=== PATIENT | male | born 1940 | race Caucasian/White ===

== ENCOUNTER 2019-07-09 19:10 | Emergency (ER) | payer MEDICARE ==
--- NOTE | 2019-07-09 19:39 | RAD ---
Chest AP view INDICATION: Fall with chest pain COMPARISON: Prior exam dated April 18, 2016 FINDINGS: Lungs:The lungs are clear Cardiac silhouette:Stable mild cardiomegaly. 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 Stable dual-lead pacemaker. Pulmonary vasculature:Normal Pleural spaces:No pleural effusion or pneumothorax is demonstrated. Upper abdomen:No abnormality seen. Osseous structures: No acute osseous abnormality. Interval left total shoulder replacement. Additional findings:None. IMPRESSION: No acute cardiopulmonary abnormality.
[2019-07-09 19:49] LABS: #Lymphocytes 0.8 thou/uL (1.20-3.40); #Monocytes 0.9 thou/uL (0.11-0.59); #Neutrophils 11.8 thou/uL (1.40-6.50); %Basophils 0.2 % (0.0-1.0); %Eosinophils 0.2 % (0.0-10.0); %Lymphocytes 6.1 % (21.0-51.0); %Monocytes 6.7 % (0.0-10.0); %Neutrophils 86.9 % (42.0-75.0); Hemoglobin 13.6 g/dL (14.0-18.0); Mean Corpuscular HGB CONC 33.5 g/dL (32.0-36.0); Mean Corpuscular Hemoglobin 33.5 pg (27.0-31.0); Mean Platelet Volume 9.1 fL (7.4-10.4); Platelet Count 141 thou/uL (130-400); RBC Distribution Width 12.3 % (11.5-14.5); Red Blood Cell (RBC) Count 4.04 mill/uL (4.70-6.10); White Blood Cell (WBC) Count 13.6 thou/uL (4.8-10.8)
--- NOTE | 2019-07-09 19:51 | RAD ---
RIGHT HAND THREE VIEW: 07/09/19 HISTORY: Fall. COMPARISON: None. FINDINGS: No acute displaced fracture or malalignment. Mild vascular calcifications. Mild interphalangeal joint space narrowing. IMPRESSION: 1. No acute fracture or malalignment. 2. 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 This is a chronic benign pr ocess. POS: HOME
--- NOTE | 2019-07-09 19:52 | CT ---
CT Brain WO Con: 07/09/2019 7:23 PM CLINICAL HISTORY: Fall on blood thinners. IMAGING TECHNIQUE: Multiple CT images were obtained of the brain without IV contrast. COMPARISON: CT the brain dated December 30, 2015 FINDINGS: Brain: There is been interval development of an area of encephalomalacia involving the right inferio r and lateral aspect of the frontal lobe likely related to prior ischemic insult. There is mild chronic small vessel white matter ischemic change. No acute infarct, hemorrhage or hydrocephalus is p resent. Ventricles: Normal. No hydrocephalus.. Skull: Intact.. Visualized Paranasal sinuses: There is chronic sinusitis involving the right main sphenoid sinus that is stable to the prior exam.. Mastoid air cells:Clear. Extracranial soft tissues:Normal. IMPRESSION: No acute intracranial abnormality. 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 Mild chronic small vessel white matter ischemic change. Stable chronic sphenoid sinusitis.
--- NOTE | 2019-07-09 19:53 | RAD ---
LEFT HAND THREE VIEW 07/09/19 HISTORY: Fall. Pain. COMPARISON: None. FINDINGS: Elongation of the ulnar styloid. No fracture. No malalignment. Punctate radiopacity less than 1 mm in size along the lateral aspect of the index finger distal phala nx diaphysis. IMPRESSION: Punctate radiopacity as described. No acute fracture. POS: HOME
[2019-07-09 19:56] LABS: INR-International Normal Ratio 1.1; PTT 30.4 SEC (22.9-36.1)
[2019-07-09 20:12] LABS: ALT (SGPT) 12 U/L (8-55); AST (SGOT) 24 U/L (5-34); Albumin 4.3 g/dL (3.4-4.8); Alkaline Phosphatase 78 U/L (40-110); Anion Gap 14 mmol/L (10-20); BUN (Urea Nitrogen) 30 mg/dL (8.4-25.7); Bilirubin, Total 0.6 mg/dL (0.2-1.2); Calc. Creatinine Clearance 0 mL/min (70-130); Calcium 9.6 mg/dL (7.8-10.44); Carbon Dioxide 23 mmol/L (23-31); Chloride 106 mmol/L (98-107); Estimated GFR-MDRD 57; Globulin 3.6 g/dL (2.4-3.5); Glucose 112 mg/dL (83-110); Potassium 3.8 mmol/L (3.5-5.1); Protein, Total 7.9 g/dL (5.8-8.1); Sodium 139 mmol/L (136-145)
[2019-07-09] MEDS ORDERED: Adacel (T-DAP) 0.5 ML SYRINGE ONE (20:20)
== END 2019-07-09 21:44 | disposition home or self-care (01) ==
LOC: ERS 19:10
DX: S60.222A Contusion of left hand, initial encounter (principal); S60.221A Contusion of right hand, initial encounter; S80.811A Abrasion, right lower leg, initial encounter; G20 Parkinson's disease; I25.10 Atherosclerotic heart disease of native coronary artery without angina pectoris; Z23 Encounter for immunization; Z79.899 Other long term (current) drug therapy; Z79.02 Long term (current) use of antithrombotics/antiplatelets; W17.89XA Other fall from one level to another, initial encounter; Y93.01 Activity, walking, marching and hiking
CPT/HCPCS: 36415; 70450; 71045; 80053; 85025; 85610; 85730; 90471; 90715

== ENCOUNTER 2020-09-02 15:58 | Inpatient (IN) | payer MEDICARE ==
[~2020-09-02 15:58] MED LIST: Iopamidol-370 76% 500 ML 1 ML ONE
[2020-09-02 16:46] LABS: Hemoglobin 11.1 g/dL (14.0-18.0); Mean Corpuscular HGB CONC 33.5 g/dL (32.0-36.0); Mean Corpuscular Hemoglobin 33.8 pg (27.0-31.0); Mean Platelet Volume 10.2 fL (7.4-10.4); Platelet Count 72 thou/uL (130-400); RBC Distribution Width 12.2 % (11.5-14.5)
[2020-09-02 16:50] LABS: Bacteria/HPF None Seen HPF (None Seen); Bilirubin Negative (Negative); Blood, Urine Trace (Negative); Clarity Clear (Clear); Glucose, Urine (Dipstick) Normal (Negative); Ketone, Urine Negative (Negative); Leukocyte Negative Leu/uL (Negative); Mucous/LPF Rare LPF (<2+); Nitrite Negative (Negative); Protein, Urine (Dipstick) 10 mg/dL (Neg-Trace); RBC/HPF 0-3 HPF (0-3); Specific Gravity, Urine 1.012 (1.002-1.036); Squamous Epithelial None Seen HPF (0-3); Urobilinogen Normal mg/dL (Less than 2); WBC/HPF 0-3 HPF (0-3); pH, Urine 5.5 (5.0-9.0)
[2020-09-02 17:02] LABS: ALT (SGPT) 11 U/L (8-55); AST (SGOT) 50 U/L (5-34); Albumin 3.2 g/dL (3.4-4.8); Alkaline Phosphatase 74 U/L (40-110); Anion Gap 14 mmol/L (10-20); BUN (Urea Nitrogen) 36 mg/dL (8.4-25.7); Bilirubin, Total 0.7 mg/dL (0.2-1.2); Calc. Creatinine Clearance 0 mL/min (70-130); Calcium 7.9 mg/dL (7.8-10.44); Carbon Dioxide 18 mmol/L (23-31); Chloride 104 mmol/L (98-107); Glucose 91 mg/dL (83-110); Potassium 3.4 mmol/L (3.5-5.1); Protein, Total 6.2 g/dL (5.8-8.1); Sodium 133 mmol/L (136-145)
[2020-09-02 17:05] LABS: Band 27 % (5-11); Lymphocytes 1 % (21-51); MDiff Complete? YES; Monocytes 6 % (0-10); Neutrophil 66 % (42-75); Ovalocytes SLIGHT = 2-5 cells (100X) (0-1/hpf); Platelet Morphology Comment Appears Decreased; Polychromasia SLIGHT = 2-3 cells (100X) (0-2/hpf)
[2020-09-02] MEDS ORDERED: Sodium Chloride 0.9% 0 ML ONE (17:19)
[2020-09-02] MEDS ORDERED: Cefepime 2 GM VIAL ONE (17:19)
[2020-09-02 17:21] LABS: SARS-CoV-2 NAA Rapid Test Not Detected (NotDetected)
[2020-09-02] MEDS ORDERED: Vancomycin 1.5 GRAM/300 ML BAG 1.5 GM in Premix Bag 1 BAG IVPB SCH (17:30)
[2020-09-02 19:31] LABS: Lactic Acid 0.9 mmol/L (0.5-2.2)
[2020-09-02] MEDS ORDERED: Ondansetron PF 4 MG/2 ML Vial IVP PRN (22:22)
[2020-09-02] MEDS ORDERED: Potassium Chloride 20 MEQ TAB PO SCH (22:30)
[2020-09-02 23:38] VITALS: BMI 21.3
[2020-09-02] MEDS: Sodium Chloride 0.9% 1,000 ML IV SCH (23:41)
[2020-09-03] MEDS: Piperacillin/Tazobactam 3.375 GM in Sodium Chloride 0.9% 100 ML IVPB SCH ×3 (05:05→20:40)
[2020-09-03 05:42] LABS: Hemoglobin 11.2 g/dL (14.0-18.0); Mean Corpuscular HGB CONC 34.1 g/dL (32.0-36.0); Mean Corpuscular Hemoglobin 34.5 pg (27.0-31.0); Mean Platelet Volume 10.5 fL (7.4-10.4); Platelet Count 72 thou/uL (130-400); RBC Distribution Width 12.5 % (11.5-14.5); Red Blood Cell (RBC) Count 3.23 mill/uL (4.70-6.10); White Blood Cell (WBC) Count 10.4 thou/uL (4.8-10.8)
[2020-09-03 05:59] LABS: Lymphocytes 8 % (21-51); MDiff Complete? YES; Monocytes 5 % (0-10); Neutrophil 87 % (42-75); Platelet Morphology Comment Appears Decreased
[2020-09-03 06:00] LABS: Anion Gap 12 mmol/L (10-20); BUN (Urea Nitrogen) 28 mg/dL (8.4-25.7); Calc. Creatinine Clearance 69 mL/min (70-130); Carbon Dioxide 21 mmol/L (23-31); Chloride 108 mmol/L (98-107); Glucose 84 mg/dL (83-110); Magnesium 2.2 mg/dL (1.6-2.6); Potassium 3.9 mmol/L (3.5-5.1); Sodium 137 mmol/L (136-145)
[2020-09-03 06:00] LABS: ALT (SGPT) 20 U/L (8-55); AST (SGOT) 45 U/L (5-34); Albumin 3.1 g/dL (3.4-4.8); Alkaline Phosphatase 69 U/L (40-110); Bilirubin, Direct 0.3 mg/dL (0.1-0.3); Bilirubin, Total 0.5 mg/dL (0.2-1.2); Protein, Total 5.9 g/dL (5.8-8.1)
[2020-09-03] MEDS: Vancomycin 1 GM in Premix Bag 1 BAG IVPB SCH ×2 (11:41→22:07)
[2020-09-03] MEDS: Sodium Chloride 0.9% 1,000 ML IV SCH (18:57)
[2020-09-04] MEDS: Piperacillin/Tazobactam 3.375 GM in Sodium Chloride 0.9% 100 ML IVPB SCH ×2 (05:39→13:42)
[2020-09-04 06:40] LABS: Hemoglobin 11.9 g/dL (14.0-18.0); Mean Corpuscular HGB CONC 33.8 g/dL (32.0-36.0); Mean Corpuscular Hemoglobin 34.1 pg (27.0-31.0); Mean Platelet Volume 9.9 fL (7.4-10.4); Platelet Count 90 thou/uL (130-400); RBC Distribution Width 12.2 % (11.5-14.5); Red Blood Cell (RBC) Count 3.48 mill/uL (4.70-6.10)
[2020-09-04 06:47] LABS: Band 3 % (5-11); Hypochromia SLIGHT = 6-15 cells (100X) (0-5/hpf); Lymphocytes 4 % (21-51); MDiff Complete? YES; Macrocytosis SLIGHT = 6-15 cells (100X) (0-5/hpf); Monocytes 13 % (0-10); Neutrophil 80 % (42-75); Platelet Morphology Comment Appears Adequate
[2020-09-04 06:53] LABS: Anion Gap 12 mmol/L (10-20); BUN (Urea Nitrogen) 18 mg/dL (8.4-25.7); Calc. Creatinine Clearance 77 mL/min (70-130); Calcium 8.1 mg/dL (7.8-10.44); Carbon Dioxide 20 mmol/L (23-31); Chloride 109 mmol/L (98-107); Glucose 94 mg/dL (83-110); Potassium 3.3 mmol/L (3.5-5.1); Sodium 138 mmol/L (136-145)
[2020-09-04] MEDS: Vancomycin 1 GM in Premix Bag 1 BAG IVPB SCH ×2 (11:40→22:39)
[2020-09-04] MEDS ORDERED: Potassium Chloride 20 MEQ TAB PO SCH (15:00)
[2020-09-04] MEDS: metroNIDAZOLE 500 MG in Premix Bag 1 BAG IVPB SCH ×2 (15:54→23:50)
[2020-09-04] MEDS: Sodium Chloride 0.9% 1,000 ML IV SCH (17:11)
[2020-09-04] MEDS: Atorvastatin Calcium 10 MG TAB PO SCH (21:41)
[2020-09-04 22:34] LABS: Vancomycin, Trough 13.4 ug/mL
[2020-09-05 06:49] LABS: #Eosinphils 0.1 thou/uL (0.0-0.7); #Lymphocytes 1.4 thou/uL (1.20-3.40); #Monocytes 1.2 thou/uL (0.11-0.59); #Neutrophils 8.4 thou/uL (1.40-6.50); %Basophils 0.3 % (0.0-1.0); %Eosinophils 0.5 % (0.0-10.0); %Lymphocytes 12.4 % (21.0-51.0); %Monocytes 11.1 % (0.0-10.0); %Neutrophils 75.7 % (42.0-75.0); Hemoglobin 12.1 g/dL (14.0-18.0); Mean Corpuscular HGB CONC 34.9 g/dL (32.0-36.0); Mean Corpuscular Hemoglobin 35.3 pg (27.0-31.0); Mean Platelet Volume 9.9 fL (7.4-10.4); Platelet Count 111 thou/uL (130-400); RBC Distribution Width 12.2 % (11.5-14.5); Red Blood Cell (RBC) Count 3.42 mill/uL (4.70-6.10); White Blood Cell (WBC) Count 11.1 thou/uL (4.8-10.8)
[2020-09-05 07:13] LABS: Anion Gap 11 mmol/L (10-20); BUN (Urea Nitrogen) 13 mg/dL (8.4-25.7); Calc. Creatinine Clearance 81 mL/min (70-130); Calcium 8.2 mg/dL (7.8-10.44); Carbon Dioxide 22 mmol/L (23-31); Chloride 110 mmol/L (98-107); Glucose 102 mg/dL (83-110); Magnesium 2.1 mg/dL (1.6-2.6); Potassium 3.2 mmol/L (3.5-5.1); Sodium 140 mmol/L (136-145)
[2020-09-05] MEDS: metroNIDAZOLE 500 MG in Premix Bag 1 BAG IVPB SCH ×2 (09:04→17:30)
[2020-09-05] MEDS: Zonisamide 100 MG CAP PO SCH (09:05)
[2020-09-05] MEDS: Aspirin 81 mg Enteric Coated Tablet PO SCH (09:05)
[2020-09-05] MEDS: Sodium Chloride 0.9% 1,000 ML IV SCH (10:32)
[2020-09-05] MEDS: Carbidopa/Levodopa 25-250 mg Tablet PO SCH ×3 (10:33→20:31)
[2020-09-05] MEDS: Vancomycin 1 GM in Premix Bag 1 BAG IVPB SCH ×2 (10:33→22:09)
[2020-09-05] MEDS ORDERED: Potassium Chloride 20 MEQ TAB PO SCH (13:15)
[2020-09-05] MEDS ORDERED: Cholestyramine/Aspartame 4 gm Packet PO SCH (13:15)
[2020-09-05] MEDS: Atorvastatin Calcium 10 MG TAB PO SCH (20:31)
[2020-09-05] MEDS: Cholestyramine/Aspartame 4 gm Packet PO SCH (22:09)
[2020-09-06] MEDS: metroNIDAZOLE 500 MG in Premix Bag 1 BAG IVPB SCH ×3 (00:09→16:45)
[2020-09-06] MEDS: Sodium Chloride 0.9% 1,000 ML IV SCH (05:46)
[2020-09-06] MEDS: Aspirin 81 mg Enteric Coated Tablet PO SCH (08:43)
[2020-09-06] MEDS: Carbidopa/Levodopa 25-250 mg Tablet PO SCH ×3 (08:43→20:43)
[2020-09-06] MEDS: Zonisamide 100 MG CAP PO SCH (08:43)
[2020-09-06] MEDS: traMADol HCl 50 MG TAB PO PRN (08:50)
[2020-09-06] MEDS: Vancomycin 1 GM in Premix Bag 1 BAG IVPB SCH (09:52)
[2020-09-06] MEDS: Cholestyramine/Aspartame 4 gm Packet PO SCH ×2 (11:39→21:59)
[2020-09-06] MEDS: Atorvastatin Calcium 10 MG TAB PO SCH (20:43)
[2020-09-06] MEDS: VANCOMYCIN 1.25 GM/250 ML BAG 1.25 GM in Premix Bag 1 BAG IVPB SCH (21:59)
[2020-09-07] MEDS: metroNIDAZOLE 500 MG in Premix Bag 1 BAG IVPB SCH ×3 (00:03→16:20)
[2020-09-07] MEDS: traMADol HCl 50 MG TAB PO PRN (01:33)
[2020-09-07] MEDS: Sodium Chloride 0.9% 1,000 ML IV SCH ×3 (03:13→21:36)
[2020-09-07 05:23] LABS: #Basophils 0.1 thou/uL (0.0-0.2); #Eosinphils 0.3 thou/uL (0.0-0.7); #Lymphocytes 1.6 thou/uL (1.20-3.40); #Monocytes 0.9 thou/uL (0.11-0.59); #Neutrophils 6.6 thou/uL (1.40-6.50); %Basophils 0.7 % (0.0-1.0); %Eosinophils 2.7 % (0.0-10.0); %Monocytes 9.6 % (0.0-10.0); %Neutrophils 69.9 % (42.0-75.0); Hemoglobin 11.6 g/dL (14.0-18.0); Mean Corpuscular HGB CONC 32.6 g/dL (32.0-36.0); Mean Platelet Volume 8.9 fL (7.4-10.4); Platelet Count 166 thou/uL (130-400); RBC Distribution Width 12.4 % (11.5-14.5); Red Blood Cell (RBC) Count 3.51 mill/uL (4.70-6.10); White Blood Cell (WBC) Count 9.4 thou/uL (4.8-10.8)
[2020-09-07 05:47] LABS: Anion Gap 10 mmol/L (10-20); BUN (Urea Nitrogen) 14 mg/dL (8.4-25.7); Calc. Creatinine Clearance 78 mL/min (70-130); Calcium 8.2 mg/dL (7.8-10.44); Carbon Dioxide 23 mmol/L (23-31); Chloride 109 mmol/L (98-107); Glucose 87 mg/dL (83-110); Potassium 3.6 mmol/L (3.5-5.1); Sodium 138 mmol/L (136-145)
[2020-09-07] MEDS: Aspirin 81 mg Enteric Coated Tablet PO SCH (08:11)
[2020-09-07] MEDS: Zonisamide 100 MG CAP PO SCH (08:11)
[2020-09-07] MEDS: Carbidopa/Levodopa 25-250 mg Tablet PO SCH ×3 (08:12→20:22)
[2020-09-07] MEDS: VANCOMYCIN 1.25 GM/250 ML BAG 1.25 GM in Premix Bag 1 BAG IVPB SCH ×2 (09:34→21:31)
[2020-09-07] MEDS: Cholestyramine/Aspartame 4 gm Packet PO SCH ×2 (09:35→21:30)
[2020-09-07] MEDS: Acetaminophen 325 MG TAB PO PRN (11:27)
[2020-09-07] MEDS: Atorvastatin Calcium 10 MG TAB PO SCH (20:22)
[2020-09-08] MEDS: metroNIDAZOLE 500 MG in Premix Bag 1 BAG IVPB SCH ×3 (00:50→15:31)
[2020-09-08 06:06] LABS: #Basophils 0.1 thou/uL (0.0-0.2); #Eosinphils 0.3 thou/uL (0.0-0.7); #Lymphocytes 1.7 thou/uL (1.20-3.40); #Neutrophils 8.6 thou/uL (1.40-6.50); %Basophils 0.8 % (0.0-1.0); %Eosinophils 2.4 % (0.0-10.0); %Lymphocytes 14.4 % (21.0-51.0); %Monocytes 8.8 % (0.0-10.0); %Neutrophils 73.5 % (42.0-75.0); Mean Corpuscular HGB CONC 33.3 g/dL (32.0-36.0); Mean Corpuscular Hemoglobin 33.7 pg (27.0-31.0); Mean Platelet Volume 8.6 fL (7.4-10.4); Platelet Count 195 thou/uL (130-400); RBC Distribution Width 12.5 % (11.5-14.5); Red Blood Cell (RBC) Count 3.56 mill/uL (4.70-6.10); White Blood Cell (WBC) Count 11.7 thou/uL (4.8-10.8)
[2020-09-08 06:17] LABS: Anion Gap 13 mmol/L (10-20); BUN (Urea Nitrogen) 15 mg/dL (8.4-25.7); Calc. Creatinine Clearance 79 mL/min (70-130); Calcium 8.5 mg/dL (7.8-10.44); Carbon Dioxide 19 mmol/L (23-31); Chloride 110 mmol/L (98-107); Glucose 98 mg/dL (83-110); Potassium 4.1 mmol/L (3.5-5.1); Sodium 138 mmol/L (136-145)
[2020-09-08] MEDS: Aspirin 81 mg Enteric Coated Tablet PO SCH (08:28)
[2020-09-08] MEDS: Carbidopa/Levodopa 25-250 mg Tablet PO SCH ×3 (08:28→20:57)
[2020-09-08] MEDS: Zonisamide 100 MG CAP PO SCH (08:28)
[2020-09-08] MEDS: Cholestyramine/Aspartame 4 gm Packet PO SCH ×2 (08:29→22:42)
[2020-09-08] MEDS: VANCOMYCIN 1.25 GM/250 ML BAG 1.25 GM in Premix Bag 1 BAG IVPB SCH ×3 (08:29→22:41)
[2020-09-08 09:12] LABS: Vancomycin, Trough 20.2 ug/mL
[2020-09-08] MEDS: Sodium Chloride 0.9% 1,000 ML IV SCH (20:57)
[2020-09-08] MEDS: Atorvastatin Calcium 10 MG TAB PO SCH (20:57)
[2020-09-09] MEDS: metroNIDAZOLE 500 MG in Premix Bag 1 BAG IVPB SCH ×3 (00:55→16:57)
[2020-09-09 06:33] LABS: #Basophils 0.1 thou/uL (0.0-0.2); #Eosinphils 0.1 thou/uL (0.0-0.7); #Lymphocytes 1.6 thou/uL (1.20-3.40); #Neutrophils 8.5 thou/uL (1.40-6.50); %Basophils 1.1 % (0.0-1.0); %Eosinophils 1.2 % (0.0-10.0); %Lymphocytes 14.2 % (21.0-51.0); %Neutrophils 74.5 % (42.0-75.0); Hemoglobin 11.8 g/dL (14.0-18.0); Mean Corpuscular HGB CONC 33.4 g/dL (32.0-36.0); Mean Platelet Volume 8.6 fL (7.4-10.4); Platelet Count 226 thou/uL (130-400); RBC Distribution Width 12.4 % (11.5-14.5); Red Blood Cell (RBC) Count 3.46 mill/uL (4.70-6.10); White Blood Cell (WBC) Count 11.4 thou/uL (4.8-10.8)
[2020-09-09 06:52] LABS: Anion Gap 11 mmol/L (10-20); BUN (Urea Nitrogen) 15 mg/dL (8.4-25.7); Calc. Creatinine Clearance 76 mL/min (70-130); Carbon Dioxide 21 mmol/L (23-31); Chloride 108 mmol/L (98-107); Glucose 100 mg/dL (83-110); Potassium 3.4 mmol/L (3.5-5.1); Sodium 137 mmol/L (136-145)
[2020-09-09] MEDS: Carbidopa/Levodopa 25-250 mg Tablet PO SCH ×3 (08:45→20:10)
[2020-09-09] MEDS: Aspirin 81 mg Enteric Coated Tablet PO SCH (08:45)
[2020-09-09] MEDS: Zonisamide 100 MG CAP PO SCH (08:45)
[2020-09-09] MEDS: VANCOMYCIN 1.25 GM/250 ML BAG 1.25 GM in Premix Bag 1 BAG IVPB SCH ×2 (11:46→20:10)
[2020-09-09] MEDS: Cholestyramine/Aspartame 4 gm Packet PO SCH ×2 (11:46→22:20)
[2020-09-09] MEDS: Sodium Chloride 0.9% 1,000 ML IV SCH (15:59)
[2020-09-09] MEDS: Atorvastatin Calcium 10 MG TAB PO SCH (20:10)
[2020-09-09] MEDS: traMADol HCl 50 MG TAB PO PRN (22:18)
[2020-09-10] MEDS: metroNIDAZOLE 500 MG in Premix Bag 1 BAG IVPB SCH ×4 (00:22→23:21)
[2020-09-10 07:05] LABS: Anion Gap 11 mmol/L (10-20); BUN (Urea Nitrogen) 16 mg/dL (8.4-25.7); Calc. Creatinine Clearance 80 mL/min (70-130); Calcium 8.1 mg/dL (7.8-10.44); Carbon Dioxide 21 mmol/L (23-31); Chloride 110 mmol/L (98-107); Glucose 107 mg/dL (83-110); Potassium 3.5 mmol/L (3.5-5.1); Sodium 138 mmol/L (136-145)
[2020-09-10 07:46] LABS: #Basophils 0.1 thou/uL (0.0-0.2); #Eosinphils 0.2 thou/uL (0.0-0.7); #Lymphocytes 1.5 thou/uL (1.20-3.40); #Monocytes 0.9 thou/uL (0.11-0.59); #Neutrophils 8.3 thou/uL (1.40-6.50); %Eosinophils 1.7 % (0.0-10.0); %Lymphocytes 13.5 % (21.0-51.0); %Monocytes 8.3 % (0.0-10.0); %Neutrophils 75.6 % (42.0-75.0); Hemoglobin 11.7 g/dL (14.0-18.0); Mean Corpuscular HGB CONC 33.6 g/dL (32.0-36.0); Mean Corpuscular Hemoglobin 33.9 pg (27.0-31.0); Mean Platelet Volume 8.9 fL (7.4-10.4); Platelet Count 222 thou/uL (130-400); RBC Distribution Width 12.4 % (11.5-14.5); Red Blood Cell (RBC) Count 3.45 mill/uL (4.70-6.10)
[2020-09-10] MEDS: Aspirin 81 mg Enteric Coated Tablet PO SCH (08:39)
[2020-09-10] MEDS: Carbidopa/Levodopa 25-250 mg Tablet PO SCH ×3 (08:39→20:21)
[2020-09-10] MEDS: Cholestyramine/Aspartame 4 gm Packet PO SCH ×2 (08:39→22:26)
[2020-09-10] MEDS: Zonisamide 100 MG CAP PO SCH (08:39)
[2020-09-10] MEDS: Sodium Chloride 0.9% 1,000 ML IV SCH (08:40)
[2020-09-10 10:33] LABS: Vancomycin, Trough 15.7 ug/mL
[2020-09-10] MEDS: VANCOMYCIN 1.25 GM/250 ML BAG 1.25 GM in Premix Bag 1 BAG IVPB SCH ×2 (11:48→23:21)
[2020-09-10] MEDS: Atorvastatin Calcium 10 MG TAB PO SCH (20:21)
[2020-09-10] MEDS: traMADol HCl 50 MG TAB PO PRN (20:29)
[2020-09-11] MEDS: Sodium Chloride 0.9% 1,000 ML IV SCH (05:11)
[2020-09-11 06:12] LABS: #Basophils 0.1 thou/uL (0.0-0.2); #Eosinphils 0.1 thou/uL (0.0-0.7); #Lymphocytes 1.7 thou/uL (1.20-3.40); #Monocytes 0.8 thou/uL (0.11-0.59); #Neutrophils 8.9 thou/uL (1.40-6.50); %Basophils 0.5 % (0.0-1.0); %Lymphocytes 14.4 % (21.0-51.0); %Monocytes 6.5 % (0.0-10.0); %Neutrophils 77.6 % (42.0-75.0); Hemoglobin 11.9 g/dL (14.0-18.0); Mean Corpuscular Hemoglobin 33.7 pg (27.0-31.0); Mean Platelet Volume 8.8 fL (7.4-10.4); Platelet Count 231 thou/uL (130-400); RBC Distribution Width 12.5 % (11.5-14.5); Red Blood Cell (RBC) Count 3.53 mill/uL (4.70-6.10); White Blood Cell (WBC) Count 11.5 thou/uL (4.8-10.8)
[2020-09-11 06:26] LABS: Anion Gap 12 mmol/L (10-20); BUN (Urea Nitrogen) 16 mg/dL (8.4-25.7); Calc. Creatinine Clearance 79 mL/min (70-130); Calcium 8.2 mg/dL (7.8-10.44); Carbon Dioxide 23 mmol/L (23-31); Chloride 108 mmol/L (98-107); Glucose 99 mg/dL (83-110); Potassium 3.7 mmol/L (3.5-5.1); Sodium 139 mmol/L (136-145)
[2020-09-11] MEDS: metroNIDAZOLE 500 MG in Premix Bag 1 BAG IVPB SCH ×3 (08:26→23:55)
[2020-09-11] MEDS: Aspirin 81 mg Enteric Coated Tablet PO SCH (08:26)
[2020-09-11] MEDS: Acetaminophen 325 MG TAB PO PRN (08:26)
[2020-09-11] MEDS: Zonisamide 100 MG CAP PO SCH (08:26)
[2020-09-11] MEDS: Cholestyramine/Aspartame 4 gm Packet PO SCH ×2 (08:27→19:51)
[2020-09-11] MEDS: Carbidopa/Levodopa 25-250 mg Tablet PO SCH ×3 (08:27→19:50)
[2020-09-11] MEDS: VANCOMYCIN 1.25 GM/250 ML BAG 1.25 GM in Premix Bag 1 BAG IVPB SCH ×2 (10:43→23:55)
[2020-09-11] MEDS ORDERED: Morphine 2 MG/ML VIAL SLOW IVP SCH (12:00)
[2020-09-11 12:25] LABS: Bacteria/HPF None Seen HPF (None Seen); Bilirubin Negative (Negative); Blood, Urine Negative (Negative); Clarity Clear (Clear); Glucose, Urine (Dipstick) Normal (Negative); Ketone, Urine Negative (Negative); Leukocyte Negative Leu/uL (Negative); Nitrite Negative (Negative); Protein, Urine (Dipstick) Negative (Neg-Trace); Specific Gravity, Urine 1.008 (1.002-1.036); Squamous Epithelial None Seen HPF (0-3); Urobilinogen Normal mg/dL (Less than 2); WBC/HPF 0-3 HPF (0-3)
[2020-09-11 12:27] LABS: Urine Culture Reflex No No
[2020-09-11] MEDS: Phenazopyridine HCl 100 MG TAB PO SCH ×2 (13:34→16:30)
[2020-09-11] MEDS: Atorvastatin Calcium 10 MG TAB PO SCH (19:50)
[2020-09-11] MEDS: traMADol HCl 50 MG TAB PO PRN (21:32)
[2020-09-12] MEDS: Sodium Chloride 0.9% 1,000 ML IV SCH ×2 (02:40→21:20)
[2020-09-12] MEDS: Aspirin 81 mg Enteric Coated Tablet PO SCH (08:33)
[2020-09-12] MEDS: Carbidopa/Levodopa 25-250 mg Tablet PO SCH ×3 (08:33→20:50)
[2020-09-12] MEDS: metroNIDAZOLE 500 MG in Premix Bag 1 BAG IVPB SCH ×3 (08:33→23:02)
[2020-09-12] MEDS: Phenazopyridine HCl 100 MG TAB PO SCH ×3 (08:34→17:14)
[2020-09-12] MEDS: Zonisamide 100 MG CAP PO SCH (08:40)
[2020-09-12] MEDS: Cholestyramine/Aspartame 4 gm Packet PO SCH ×2 (10:24→20:07)
[2020-09-12] MEDS: Tamsulosin HCl 0.4 MG CAP PO SCH ×3 (10:24→20:50)
[2020-09-12 12:42] LABS: Vancomycin, Trough 18.2 ug/mL
[2020-09-12] MEDS: VANCOMYCIN 1.25 GM/250 ML BAG 1.25 GM in Premix Bag 1 BAG IVPB SCH ×2 (14:15→14:31)
[2020-09-12] MEDS: traMADol HCl 50 MG TAB PO PRN (17:17)
[2020-09-12] MEDS: Atorvastatin Calcium 10 MG TAB PO SCH (20:50)
[2020-09-13] MEDS: VANCOMYCIN 1.25 GM/250 ML BAG 1.25 GM in Premix Bag 1 BAG IVPB SCH ×2 (01:37→14:09)
[2020-09-13] MEDS: Ciprofloxacin 500 MG TAB PO SCH ×2 (05:43→19:57)
[2020-09-13 06:58] LABS: #Basophils 0.1 thou/uL (0.0-0.2); #Eosinphils 0.1 thou/uL (0.0-0.7); #Lymphocytes 1.6 thou/uL (1.20-3.40); #Monocytes 0.7 thou/uL (0.11-0.59); #Neutrophils 7.6 thou/uL (1.40-6.50); %Basophils 0.7 % (0.0-1.0); %Eosinophils 1.3 % (0.0-10.0); %Monocytes 6.6 % (0.0-10.0); %Neutrophils 75.4 % (42.0-75.0); Hemoglobin 11.3 g/dL (14.0-18.0); Mean Corpuscular HGB CONC 32.7 g/dL (32.0-36.0); Mean Corpuscular Hemoglobin 33.3 pg (27.0-31.0); Mean Platelet Volume 8.4 fL (7.4-10.4); Platelet Count 200 thou/uL (130-400); RBC Distribution Width 12.5 % (11.5-14.5); Red Blood Cell (RBC) Count 3.38 mill/uL (4.70-6.10); White Blood Cell (WBC) Count 10.1 thou/uL (4.8-10.8)
[2020-09-13 07:20] LABS: Anion Gap 10 mmol/L (10-20); BUN (Urea Nitrogen) 14 mg/dL (8.4-25.7); Calc. Creatinine Clearance 79 mL/min (70-130); Calcium 8.1 mg/dL (7.8-10.44); Carbon Dioxide 21 mmol/L (23-31); Chloride 111 mmol/L (98-107); Glucose 98 mg/dL (83-110); Potassium 3.6 mmol/L (3.5-5.1); Sodium 138 mmol/L (136-145)
[2020-09-13] MEDS: Phenazopyridine HCl 100 MG TAB PO SCH ×3 (08:46→19:32)
[2020-09-13] MEDS: Aspirin 81 mg Enteric Coated Tablet PO SCH (08:46)
[2020-09-13] MEDS: metroNIDAZOLE 500 MG in Premix Bag 1 BAG IVPB SCH (08:47)
[2020-09-13] MEDS: Finasteride 5 MG TAB PO SCH (08:47)
[2020-09-13] MEDS: Carbidopa/Levodopa 25-250 mg Tablet PO SCH ×3 (08:47→19:58)
[2020-09-13] MEDS: Zonisamide 100 MG CAP PO SCH (08:50)
[2020-09-13] MEDS: Cholestyramine/Aspartame 4 gm Packet PO SCH ×2 (11:32→22:03)
[2020-09-13] MEDS ORDERED: Bisacodyl 10 MG SUPP PR PRN (14:45)
[2020-09-13] MEDS ORDERED: Polyethylene Glycol 3350 17 GM Packet PO PRN (14:45)
[2020-09-13] MEDS: Sodium Chloride 0.9% 1,000 ML IV SCH (19:32)
[2020-09-13] MEDS: Tamsulosin HCl 0.4 MG CAP PO SCH (19:57)
[2020-09-13] MEDS: Atorvastatin Calcium 10 MG TAB PO SCH (19:57)
[2020-09-13] MEDS ORDERED: Labetalol HCl 100 MG/20 ML VIAL ONE (22:52)
[2020-09-14] MEDS: VANCOMYCIN 1.25 GM/250 ML BAG 1.25 GM in Premix Bag 1 BAG IVPB SCH ×2 (02:02→13:26)
[2020-09-14] MEDS: Ciprofloxacin 500 MG TAB PO SCH ×2 (05:54→21:18)
[2020-09-14] MEDS: Finasteride 5 MG TAB PO SCH (09:50)
[2020-09-14] MEDS: Phenazopyridine HCl 100 MG TAB PO SCH ×3 (09:50→17:24)
[2020-09-14] MEDS: Carbidopa/Levodopa 25-250 mg Tablet PO SCH ×3 (09:50→21:18)
[2020-09-14] MEDS: Zonisamide 100 MG CAP PO SCH (09:50)
[2020-09-14] MEDS: Aspirin 81 mg Enteric Coated Tablet PO SCH (09:50)
[2020-09-14] MEDS: Cholestyramine/Aspartame 4 gm Packet PO SCH ×2 (09:51→21:19)
[2020-09-14] MEDS: Acetaminophen 325 MG TAB PO PRN (09:54)
[2020-09-14] MEDS: Sodium Chloride 0.9% 1,000 ML IV SCH (13:26)
[2020-09-14] MEDS: traMADol HCl 50 MG TAB PO PRN (17:58)
[2020-09-14] MEDS: Tamsulosin HCl 0.4 MG CAP PO SCH (21:18)
[2020-09-14] MEDS: Atorvastatin Calcium 10 MG TAB PO SCH (21:18)
[2020-09-15] MEDS: VANCOMYCIN 1.25 GM/250 ML BAG 1.25 GM in Premix Bag 1 BAG IVPB SCH ×2 (02:52→12:44)
[2020-09-15] MEDS: Ciprofloxacin 500 MG TAB PO SCH ×2 (06:05→20:32)
[2020-09-15 07:45] LABS: Anion Gap 9 mmol/L (10-20); BUN (Urea Nitrogen) 12 mg/dL (8.4-25.7); Calc. Creatinine Clearance 79 mL/min (70-130); Calcium 8.4 mg/dL (7.8-10.44); Carbon Dioxide 26 mmol/L (23-31); Chloride 109 mmol/L (98-107); Glucose 95 mg/dL (83-110); Sodium 140 mmol/L (136-145)
[2020-09-15] MEDS: Zonisamide 100 MG CAP PO SCH (09:18)
[2020-09-15] MEDS: Phenazopyridine HCl 100 MG TAB PO SCH ×3 (09:18→18:26)
[2020-09-15] MEDS: Carbidopa/Levodopa 25-250 mg Tablet PO SCH ×3 (09:18→20:32)
[2020-09-15] MEDS: Cholestyramine/Aspartame 4 gm Packet PO SCH (09:18)
[2020-09-15] MEDS: Aspirin 81 mg Enteric Coated Tablet PO SCH (09:19)
[2020-09-15] MEDS: traMADol HCl 50 MG TAB PO PRN (09:19)
[2020-09-15] MEDS: Finasteride 5 MG TAB PO SCH (09:20)
[2020-09-15] MEDS: Sodium Chloride 0.9% 1,000 ML IV SCH (09:20)
[2020-09-15] MEDS: Acetaminophen 325 MG TAB PO PRN ×2 (15:30→18:26)
[2020-09-15] MEDS: Tamsulosin HCl 0.4 MG CAP PO SCH (20:32)
[2020-09-15] MEDS: Atorvastatin Calcium 10 MG TAB PO SCH (20:32)
[2020-09-15 23:22] VITALS: BP 140/72; TEMP 98.2
== END 2020-09-15 23:15 | DRG 872 ==
LOC: ERS 15:58 → T4-A 20:42 → OBSVTOIN 09-04 09:28
PROVIDERS: ADMIT Internal Medicine; ATTEND Internal Medicine
PROC: 0T9B70Z Drainage of Bladder with Drainage Device, Via Natural or Artificial Opening (ICD-10-PCS; principal; 2020-09-13)
DX: A41.81 Sepsis due to Enterococcus (principal); E87.2 Acidosis; A09 Infectious gastroenteritis and colitis, unspecified; K52.1 Toxic gastroenteritis and colitis; Z20.822 Contact with and (suspected) exposure to COVID-19; G20 Parkinson's disease; K76.9 Liver disease, unspecified; I25.10 Atherosclerotic heart disease of native coronary artery without angina pectoris; N40.0 Benign prostatic hyperplasia without lower urinary tract symptoms; N20.0 Calculus of kidney; N21.0 Calculus in bladder; K59.09 Other constipation; N41.9 Inflammatory disease of prostate, unspecified; Z79.899 Other long term (current) drug therapy; Z95.1 Presence of aortocoronary bypass graft; Z95.0 Presence of cardiac pacemaker; T36.95XA Adverse effect of unspecified systemic antibiotic, initial encounter; K62.89 Other specified diseases of anus and rectum
CPT/HCPCS: 0240U; 36415; 51701; 70450; 71045; 71260; 74177; 80048; 80053; 80076; 80202; 81001; 81003; 81015; 83605; 83735; 84145; 84443; 84484; 85025; 87040; 87045; 87046; 87077; 87086; 87149; 87186; 87324; 87427; 87449; 93005; 93306; 96365; 96367; 96376; G0378; J0692; J0744; J2270; J2543; J3370; J3490; Q9967

== ENCOUNTER 2020-11-15 22:39 | Emergency (ER) | payer MEDICARE ==
[2020-11-16 00:17] LABS: #Eosinphils 0.1 thou/uL (0.0-0.7); #Monocytes 0.8 thou/uL (0.11-0.59); #Neutrophils 10.2 thou/uL (1.40-6.50); %Basophils 0.1 % (0.0-1.0); %Eosinophils 0.5 % (0.0-10.0); %Lymphocytes 8.1 % (21.0-51.0); %Neutrophils 84.3 % (42.0-75.0); Hemoglobin 9.9 g/dL (14.0-18.0); Mean Corpuscular HGB CONC 34.3 g/dL (32.0-36.0); Mean Corpuscular Hemoglobin 33.5 pg (27.0-31.0); Mean Corpuscular Volume 97.7 fL (78.0-98.0); Mean Platelet Volume 8.4 fL (7.4-10.4); Platelet Count 132 thou/uL (130-400); RBC Distribution Width 12.4 % (11.5-14.5); Red Blood Cell (RBC) Count 2.96 mill/uL (4.70-6.10); White Blood Cell (WBC) Count 12.1 thou/uL (4.8-10.8)
[2020-11-16 00:38] LABS: ALT (SGPT) Less than 7 U/L (8-55); AST (SGOT) 20 U/L (5-34); Albumin 2.6 g/dL (3.4-4.8); Alkaline Phosphatase 86 U/L (40-110); Anion Gap 8 mmol/L (10-20); BUN (Urea Nitrogen) 21 mg/dL (8.4-25.7); Bilirubin, Total 0.4 mg/dL (0.2-1.2); Calc. Creatinine Clearance 0 mL/min (70-130); Calcium 7.9 mg/dL (7.8-10.44); Carbon Dioxide 24 mmol/L (23-31); Chloride 107 mmol/L (98-107); Globulin 3.4 g/dL (2.4-3.5); Glucose 122 mg/dL (83-110); Potassium 3.4 mmol/L (3.5-5.1); Sodium 136 mmol/L (136-145)
== END 2020-11-16 02:48 | disposition home or self-care (01) ==
LOC: ERS 22:39
DX: S09.90XA Unspecified injury of head, initial encounter (principal); I25.10 Atherosclerotic heart disease of native coronary artery without angina pectoris; G20 Parkinson's disease; Z79.899 Other long term (current) drug therapy; W22.8XXA Striking against or struck by other objects, initial encounter
CPT/HCPCS: 70450; 72125; 74176; 80053; 85025; 93005